=== PATIENT | female | born 1945 | race Caucasian/White ===

== ENCOUNTER 2018-12-07 11:23 | Emergency (ER) | payer BC, MEDICARE | END 2018-12-07 12:58 | disposition home or self-care (01) | LOC: MADERS 11:23 | DX: L40.9 Psoriasis, unspecified (principal); I10 Essential (primary) hypertension; J45.909 Unspecified asthma, uncomplicated; F17.290 Nicotine dependence, other tobacco product, uncomplicated; Z79.899 Other long term (current) drug therapy; Z79.51 Long term (current) use of inhaled steroids | CPT/HCPCS: 96372; 99282; J1040 ==

== ENCOUNTER 2020-04-27 16:33 | Emergency (ER) | payer BC, MEDICARE ==
[2020-04-27] MEDS ORDERED: predniSONE 20 MG TAB ONE (17:27)
== END 2020-04-27 17:45 | disposition home or self-care (01) ==
LOC: MADERS 16:33
DX: J44.1 Chronic obstructive pulmonary disease with (acute) exacerbation (principal); I10 Essential (primary) hypertension; F17.290 Nicotine dependence, other tobacco product, uncomplicated; Z79.899 Other long term (current) drug therapy
CPT/HCPCS: 99284; J7512; J7620